=== PATIENT | female | born 1990 | race Caucasian/White ===

== ENCOUNTER → 2020-07-20 09:14 | Outpatient (CLI) | payer OTHER, SELFPAY ==
--- NOTE | 2020-07-20 | DI.MRI.S_ITS ---
PROCEDURE: MR KNEE RT WO CON INDICATIONS: RIGHT KNEE PAIN TECHNIQUE: Noncontrast sagittal PD fast spin echo and T2 fast spin echo with fat saturation, sagittal 3-D FLASH with fat saturation; coronal T1 spin echo and PD fast spin echo with fat saturation, and axial PD fast spin echo with fat saturation through the knee. COMPARISON: [facility] [place], CR, KNEE SERIES LT, 08/05/2015, 11:35. FINDINGS: Image quality: Excellent. Menisci: The medial and lateral menisci demonstrate normal morphology and internal signal. The meniscal root ligaments appear intact. Cruciate ligaments: The anterior and posterior cruciate ligaments appear intact. Medial structures: There is high-grade tearing of the anterior fibers of the medial collateral ligament, which demonstrates moderate surrounding ill-defined T2 signal elevation. Visualized portions of the pes anserinus tendons appear normal. No abnormal bursal fluid. Lateral structures: The lateral collateral ligament, long and short heads of the biceps femoris tendon appear intact. The popliteus tendon appears normal. Iliotibial band appears normal. Anterior structures: The quadriceps and patellar tendons appear intact. Patellar alignment is normal. No femoral trochlear dysplasia or ventral trochlear prominence. No edema in the infrapatellar fat pad. Bones and cartilage: No displaced fracture. Mild ill-defined T2 signal elevation within the lateral posterior aspect of the lateral femoral condyle. Mild articular cartilage loss diffusely overlies the weight-bearing aspects of the medial femoral condyle and medial tibial plateau. There is mild to moderate articular cartilage loss overlying the inferior aspect of the patellar apex, as well as the inferior aspect of the medial patellar facet. Joint space: There is a small knee joint effusion and a small Waddell's cyst. Normal appearing synovial plicae are incidentally noted. IMPRESSION: 1. Tearing of the medial collateral ligament. 2. Medial and patellofemoral compartment articular cartilage loss. 3. Contusion within the lateral femoral condyle. 4. Knee joint effusion and Waddell's cyst. Dictated by: Ilene To M.D. on 07/20/2020 at 10:22 Approved by: Ilene To M.D. on 07/20/2020 at 10:25
== END ==
PROVIDERS: PCP Physician Assistant; Referring Provider Physician Assistant; Visit Provider Physician Assistant
DX: M25.561 Pain in right knee (principal); S83.411A Sprain of medial collateral ligament of right knee, initial encounter; S80.01XA Contusion of right knee, initial encounter; M25.461 Effusion, right knee; M71.21 Synovial cyst of popliteal space [Baker], right knee; X58.XXXA Exposure to other specified factors, initial encounter
CPT/HCPCS: 73721